=== PATIENT | female | born 1995 | race Caucasian/White ===

== ENCOUNTER 2017-03-05 08:28 | Emergency (ER) | payer OTHER ==
[2017-03-05 08:34] VITALS: BP 148/88; PULSE 81; TEMP 98; BMI 32.1
[2017-03-05] MEDS ORDERED: CYCLOBENZAPRINE HCL 10 MG TABLET (FP) PO ONE (09:38)
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
[2017-03-05] MEDS ORDERED: CYCLOBENZAPRINE HCL 10 MG TABLET (FP) ONE (09:47)
== END 2017-03-05 10:01 | disposition home or self-care (01) ==
LOC: JERFT 08:28
DX: M62.830 Muscle spasm of back (principal); S29.012A Strain of muscle and tendon of back wall of thorax, initial encounter; V43.52XA Car driver injured in collision with other type car in traffic accident, initial encounter; Y93.89 Activity, other specified; Y92.410 Unspecified street and highway as the place of occurrence of the external cause; F41.9 Anxiety disorder, unspecified
CPT/HCPCS: 99281-25